=== PATIENT | male | born 1940 | race Caucasian/White ===

== ENCOUNTER 2017-12-01 22:40 | Emergency (ER) | payer MEDICARE, OTHER ==
[~2017-12-01] VITALS: Ht 182.9 cm; Wt 88.6 kg
[~2017-12-01 22:40] MED LIST: AMLO10TA PO; ASPI-1264 PO; ATOR20TA PO; BENA40TA2 PO; FLO0.4C PO; HYDR12.5 PO; MULT-1085 PO; OMEP-50 PO
[2017-12-01 22:56] VITALS: BP 111/81
[2017-12-01] MEDS ORDERED: Cipro HC otic suspension 10ML bottle RIGHT EAR STA (23:13)
[2017-12-01] MEDS ORDERED: ciprofloxacin 250mg tablet PO ONE (23:15)
[2017-12-01] MEDS ORDERED: CIPR10DR RIGHT EAR (23:17)
[2017-12-01] MEDS ORDERED: CIPR-259 PO (23:17)
== END 2017-12-01 23:33 | disposition home or self-care (01) ==
LOC: ER 22:40
DX: H66.91 Otitis media, unspecified, right ear (principal); Z88.0 Allergy status to penicillin; Z79.82 Long term (current) use of aspirin; Z79.899 Other long term (current) drug therapy
CPT/HCPCS: 99283

== ENCOUNTER 2019-09-09 17:28 | Emergency (ER) | payer MEDICARE ==
[~2019-09-09] VITALS: Ht 182.9 cm; Wt 90.0 kg
[~2019-09-09 17:28] MED LIST changes: -BENA40TA2 PO; +BENA40TA73 PO
[2019-09-09] MEDS ORDERED: normal saline 1000ML IV soln IV ONE (17:45)
[2019-09-09] MEDS ORDERED: acetaminophen 325mg tablet PO STA (17:59)
[2019-09-09 18:22] LABS: BASOPHILS % (AUTO) 0.4 % (0-1); EOSINOPHILS # (AUTO) 0.1 X10'3 (0-0.9); EOSINOPHILS % (AUTO) 1.3 % (0-6); HEMATOCRIT 38.1 % (42.0-52.0); LYMPHOCYTES # (AUTO) 1.3 X10'3 (1.1-4.8); LYMPHOCYTES % (AUTO) 20.5 % (21-51); MEAN CORPUSCULAR HEMOGLOBIN 30.8 PG (27.0-31.0); MEAN CORPUSCULAR HGB CONC 34.1 g/dL (33.0-36.5); MEAN CORPUSCULAR VOLUME 90.4 FL (78-98); NEUTROPHILS % (AUTO) 62.8 % (42-75); PLATELET COUNT 232 X10'3 (140-440); RED BLOOD COUNT 4.22 X10'6 (4.70-6.10); RED CELL DISTRIBUTION WIDTH 14.9 % (11.5-14.5); WHITE BLOOD COUNT 6.4 X10'3 (4.5-11.0)
[2019-09-09] MEDS ORDERED: FAMO20TA10 PO (18:25)
[2019-09-09 18:26] LABS: ABG BASE EXCESS -0.7 mmol/L (-2.0-3.0); ABG HCO3 21.3 mmol/L (22.0-26.0); ABG OXYGEN SATURATION 96.8 % (95-98); ABG PCO2 (T) 30.7 mmHg (35.0-45.0); ABG PH (T) 7.467 (7.350-7.450); ABG PO2 (T) 95.4 mmHg (83-108); ALLEN'S TEST POSITIVE; FCOHb 0.7 % (0.5-1.5); FMetHb 0.1 % (0.3-1.12); TOTAL HEMOGLOBIN 13.3 G/dl (14.0-17.9)
[2019-09-09 18:32] LABS: COLOR,URINE YELLOW (Yellow); GLUCOSE, URINE NEGATIVE (Neg); KETONES,URINE TRACE mg/dl (Neg); LEUKOCYTE ESTERASE ,URINE NEGATIVE (Neg); NITRITES, URINE NEGATIVE (Neg); OCCULT BLOOD,URINE LARGE (Neg); PROTEIN,URINE NEGATIVE (Neg)
[2019-09-09 18:33] LABS: UA COLLECTION TYPE VOIDED
[2019-09-09 18:34] LABS: CLARITY,URINE Slightly Cloudy (Clear)
[2019-09-09 18:40] LABS: BACTERIA,URINE NONE SEEN /HPF (Neg); MUCUS STRANDS MODERATE /LPF (Neg); RBC,URINE 50-100 /HPF (0-2); SQUAMOUS EPITHELIAL CELL,UR FEW /LPF (FEW); WBC,URINE 0-4 /HPF (0-4)
[2019-09-09 18:41] LABS: HYALINE CASTS 0-3 /LPF (NEGATIVE)
[2019-09-09 18:46] LABS: ALANINE AMINOTRANSFERASE 25 U/L (12-78); ALBUMIN 3.4 G/DL (3.4-5.0); ALKALINE PHOSPHATASE 84 IU/L (46-116); ANION GAP 7 (8-16); ASPARTATE AMINO TRANSFERASE 23 U/L (10-37); BILIRUBIN,TOTAL 0.6 MG/DL (0.1-1.0); BLOOD UREA NITROGEN 17 MG/DL (7-18); BUN/CREATININE RATIO 14.3 (5.4-32.0); CALCIUM 8.3 MG/DL (8.5-10.1); CHLORIDE 106 MMOL/L (99-107); CREATININE 1.19 MG/DL (0.60-1.10); GLUCOSE 96 MG/DL (70-104); POTASSIUM 3.7 MMOL/L (3.5-5.1); SODIUM 139 MMOL/L (135-145); TOTAL CARBON DIOXIDE 26.4 MMOL/L (24-32); TOTAL PROTEIN 6.9 G/DL (6.4-8.2); eGFR 59 ML/MIN
--- NOTE | 2019-09-09 18:49 | NUR ---
relieving RN for break, pt is resting quietly on bed, resp even and unlabored, "I am doing fine",
--- NOTE | 2019-09-09 18:50 | NUR ---
pt was on droplet precautions, and hepa filter on in room prior to my caring for pt
[2019-09-09 18:53] LABS: C-REACTIVE PROTEIN 4.26 MG/DL (0.0-0.5); LACTATE DEHYDROGENASE 200 U/L (85-227)
[2019-09-09 18:59] LABS: FERRITIN 69 NG/ML (26-388)
[2019-09-09] MEDS ORDERED: ketorolac tromethamine 15mg/ml inj. IV ONE (19:40)
[2019-09-09] MEDS ORDERED: AZIT250T2 PO (20:03)
[2019-09-09 20:11] LABS: PLATELET ESTIMATE NORMAL; TOTAL CELLS COUNTED 100
[2019-09-09 20:16] VITALS: BP 142/82
== END 2019-09-09 20:18 | disposition home or self-care (01) ==
LOC: ER 17:29
DX: J40 Bronchitis, not specified as acute or chronic (principal); Z20.828 Contact with and (suspected) exposure to other viral communicable diseases; Z88.0 Allergy status to penicillin; Z79.82 Long term (current) use of aspirin; Z79.899 Other long term (current) drug therapy
CPT/HCPCS: 36415; 36600; 71045; 80053; 81001; 82728; 82803; 83605; 83615; 84145; 85018; 85025; 85384; 85610; 86140; 87040; 87635; 93005; 96374; 99285; J1885; J7030

== ENCOUNTER 2021-04-09 17:05 | Emergency (ER) | payer MEDICARE ==
[~2021-04-09] VITALS: Ht 182.9 cm; Wt 88.6 kg
[~2021-04-09 17:05] MED LIST changes: -AMLO10TA PO; +FAMO20TA10 PO; -HYDR12.5 PO; -OMEP-50 PO
[2021-04-09] MEDS ORDERED: azithromycin 250mg tablet PO ONE (18:00)
[2021-04-09] MEDS ORDERED: CefTRIAXone 1000mg IM Kit (w/lidocaine diluent) IM SCH (18:00)
--- NOTE | 2021-04-09 18:41 | NUR ---
PATIENT TOLERATED INJECTION WELL, NO SIDE EFFECTS NOTED.
[2021-04-09 18:42] VITALS: BP 175/90
== END 2021-04-09 18:43 | disposition home or self-care (01) ==
LOC: ER 17:06
DX: Z11.3 Encounter for screening for infections with a predominantly sexual mode of transmission (principal); R21 Rash and other nonspecific skin eruption; Z88.0 Allergy status to penicillin; Z79.82 Long term (current) use of aspirin; Z79.899 Other long term (current) drug therapy
CPT/HCPCS: 36415; 86592; 87491; 87591; 96372; 99283; J0696

== ENCOUNTER 2021-09-28 09:04 | Outpatient (CLI) | payer MEDICARE ==
[~2021-09-28 09:04] MED LIST changes: -ASPI-1264 PO; -ATOR20TA PO; +ATOR20TA66 PO; -BENA40TA73 PO; -FAMO20TA10 PO; +FURO20TA4 PO; +HYDR28CR14 TOP; -MULT-1085 PO; +OMEP20CA16 PO; +SERT-433 PO
[2021-09-28 09:47] LABS: BASOPHILS % (AUTO) 0.7 % (0-1); EOSINOPHILS # (AUTO) 0.2 X10'3 (0-0.9); EOSINOPHILS % (AUTO) 3.2 % (0-6); HEMATOCRIT 37.6 % (42.0-52.0); HEMOGLOBIN 12.4 g/dl (14.0-17.9); LYMPHOCYTES # (AUTO) 1.2 X10'3 (1.1-4.8); LYMPHOCYTES % (AUTO) 23.3 % (21-51); MEAN CORPUSCULAR HEMOGLOBIN 29.1 PG (27.0-31.0); MEAN CORPUSCULAR HGB CONC 33.1 g/dL (33.0-36.5); MEAN PLATELET VOLUME 7.9 FL (7.4-10.4); MONOCYTES # (AUTO) 0.6 X10'3 (0-0.9); MONOCYTES % (AUTO) 11.4 % (2-12); NEUTROPHILS # (AUTO) 3.1 X10'3 (1.8-7.7); NEUTROPHILS % (AUTO) 61.4 % (42-75); PLATELET COUNT 292 X10'3 (140-440); RED BLOOD COUNT 4.27 X10'6 (4.70-6.10); RED CELL DISTRIBUTION WIDTH 16.7 % (11.5-14.5); WHITE BLOOD COUNT 5.1 X10'3 (4.5-11.0)
[2021-09-28 10:00] LABS: APTT 26 SECONDS (22-32)
[2021-09-28 10:01] LABS: ALANINE AMINOTRANSFERASE 25 U/L (12-78); ALBUMIN 3.7 G/DL (3.4-5.0); ALBUMIN/GLOBULIN RATIO 1.1 (1.1-1.5); ALKALINE PHOSPHATASE 77 IU/L (46-116); ANION GAP 8 (8-16); ASPARTATE AMINO TRANSFERASE 26 U/L (10-37); BILIRUBIN,TOTAL 0.6 MG/DL (0.1-1.0); BLOOD UREA NITROGEN 13 MG/DL (7-18); BUN/CREATININE RATIO 12.5 (5.4-32.0); CALCIUM 8.5 MG/DL (8.5-10.1); CHLORIDE 108 MMOL/L (99-107); CREATININE 1.04 MG/DL (0.60-1.10); GLUCOSE 97 MG/DL (70-104); POTASSIUM 3.8 MMOL/L (3.5-5.1); SODIUM 144 MMOL/L (135-145); TOTAL CARBON DIOXIDE 27.9 MMOL/L (24-32); TOTAL PROTEIN 7.1 G/DL (6.4-8.2); eGFR 68 ML/MIN
[2021-09-28] MEDS ORDERED: iohexol 350MG/ML 100ml bottle IV ONE (12:00)
[2021-09-28] MEDS ORDERED: IODIXANOL 320 MG/ML INFUS..BTL 100ML IV ONE (12:00)
== END 2021-09-28 23:59 | disposition home or self-care (01) ==
LOC: VAS 09:04
PROVIDERS: ATTEND Internal Medicine Cardiovascular Disease
DX: I70.0 Atherosclerosis of aorta (principal); I51.7 Cardiomegaly; N40.0 Benign prostatic hyperplasia without lower urinary tract symptoms; M43.8X4 Other specified deforming dorsopathies, thoracic region; Q25.46 Tortuous aortic arch; M47.814 Spondylosis without myelopathy or radiculopathy, thoracic region; M19.011 Primary osteoarthritis, right shoulder; M19.012 Primary osteoarthritis, left shoulder; I35.0 Nonrheumatic aortic (valve) stenosis; I65.29 Occlusion and stenosis of unspecified carotid artery; Z20.822 Contact with and (suspected) exposure to COVID-19; Z96.642 Presence of left artificial hip joint
CPT/HCPCS: 36415; 71046; 71275; 74174; 80053; 85025; 85610; 85730; 87635; 94010; 94727; 94729; C9803; Q9967

== ENCOUNTER 2022-03-13 12:25 | Emergency (ER) | payer MEDICARE ==
[~2022-03-13] VITALS: Ht 182.9 cm; Wt 69.8 kg
[~2022-03-13 12:25] MED LIST changes: +ASPI-1071 PO; +BENA40TA46 PO; +CINN500C15 PO; -HYDR28CR14 TOP; +MULT-1085 PO; -SERT-433 PO
[2022-03-13 13:50] LABS: BASOPHILS % (AUTO) 0.6 % (0-1); EOSINOPHILS # (AUTO) 0.3 X10'3 (0-0.9); EOSINOPHILS % (AUTO) 4.8 % (0-6); HEMATOCRIT 39.2 % (42.0-52.0); HEMOGLOBIN 13.1 g/dl (14.0-17.9); LYMPHOCYTES # (AUTO) 1.3 X10'3 (1.1-4.8); LYMPHOCYTES % (AUTO) 23.2 % (21-51); MEAN CORPUSCULAR HGB CONC 33.5 g/dL (33.0-36.5); MEAN CORPUSCULAR VOLUME 86.5 FL (78-98); MEAN PLATELET VOLUME 8.2 FL (7.4-10.4); MONOCYTES # (AUTO) 0.7 X10'3 (0-0.9); MONOCYTES % (AUTO) 11.7 % (2-12); NEUTROPHILS # (AUTO) 3.4 X10'3 (1.8-7.7); NEUTROPHILS % (AUTO) 59.7 % (42-75); PLATELET COUNT 218 X10'3 (140-440); RED BLOOD COUNT 4.53 X10'6 (4.70-6.10); RED CELL DISTRIBUTION WIDTH 16.8 % (11.5-14.5); WHITE BLOOD COUNT 5.8 X10'3 (4.5-11.0)
[2022-03-13 13:57] LABS: ALANINE AMINOTRANSFERASE 29 U/L (12-78); ALBUMIN 3.9 G/DL (3.4-5.0); ALBUMIN/GLOBULIN RATIO 1.1 (1.1-1.5); ALKALINE PHOSPHATASE 95 IU/L (46-116); ANION GAP 6 (8-16); ASPARTATE AMINO TRANSFERASE 32 U/L (10-37); BILIRUBIN,TOTAL 0.4 MG/DL (0.1-1.0); BLOOD UREA NITROGEN 14 MG/DL (7-18); BUN/CREATININE RATIO 13.2 (5.4-32.0); CHLORIDE 106 MMOL/L (99-107); CREATININE 1.06 MG/DL (0.60-1.10); GLUCOSE 101 MG/DL (70-104); POTASSIUM 3.8 MMOL/L (3.5-5.1); SODIUM 142 MMOL/L (135-145); TOTAL CARBON DIOXIDE 29.6 MMOL/L (24-32); TOTAL PROTEIN 7.5 G/DL (6.4-8.2); eGFR 67 ML/MIN
[2022-03-13 17:51] VITALS: BP 170/90
== END 2022-03-13 17:53 | disposition home or self-care (01) ==
LOC: ER 12:25
DX: R42 Dizziness and giddiness (principal); R55 Syncope and collapse; R53.83 Other fatigue; Z88.0 Allergy status to penicillin; Z79.899 Other long term (current) drug therapy; Z79.82 Long term (current) use of aspirin
CPT/HCPCS: 36415; 71045; 80053; 83880; 84484; 85025; 93005; 99285; A4615

== ENCOUNTER 2024-03-15 12:04 | Emergency (ER) | payer MEDICARE, OTHER, MEDICAID ==
[~2024-03-15] VITALS: Ht 182.9 cm; Wt 86.4 kg
[~2024-03-15 12:04] MED LIST changes: +AMLO10TA13 PO; -BENA40TA46 PO; -FURO20TA4 PO; +LOSA100T58 PO; +OMEP40CA21 PO
[2024-03-15 12:30] VITALS: TEMP 97
[2024-03-15] MEDS ORDERED: tranexamic acid inj. 1,000 MG in normal saline 100ml IV soln 90 ML IV ONE (13:20)
[2024-03-15 13:23] LABS: BASOPHILS % (AUTO) 0.7 % (0-1); EOSINOPHILS # (AUTO) 0.2 X10'3 (0-0.9); HEMATOCRIT 41.5 % (42.0-52.0); HEMOGLOBIN 14.1 g/dl (14.0-17.9); LYMPHOCYTES # (AUTO) 1.4 X10'3 (1.1-4.8); LYMPHOCYTES % (AUTO) 28.3 % (21-51); MEAN CORPUSCULAR HEMOGLOBIN 32.7 PG (27.0-31.0); MEAN CORPUSCULAR VOLUME 96.2 FL (78-98); MEAN PLATELET VOLUME 8.6 FL (7.4-10.4); MONOCYTES # (AUTO) 0.7 X10'3 (0-0.9); MONOCYTES % (AUTO) 13.9 % (2-12); NEUTROPHILS # (AUTO) 2.6 X10'3 (1.8-7.7); NEUTROPHILS % (AUTO) 53.1 % (42-75); PLATELET COUNT 225 X10'3 (140-440); RED BLOOD COUNT 4.32 X10'6 (4.70-6.10); RED CELL DISTRIBUTION WIDTH 15.6 % (11.5-14.5)
[2024-03-15 13:45] LABS: ANION GAP 9 (8-16); BLOOD UREA NITROGEN 9 MG/DL (7-18); BUN/CREATININE RATIO 8.7 (10.0-20.0); CALCIUM 8.9 MG/DL (8.5-10.1); CHLORIDE 105 MMOL/L (99-107); CREATININE 1.04 MG/DL (0.60-1.10); GLUCOSE 100 MG/DL (70-104); PRO BRAIN NATRIURETIC PEPTIDE 153 PG/ML (0-450); SODIUM 139 MMOL/L (135-145); TOTAL CARBON DIOXIDE 25.4 MMOL/L (24-32); eCRCL 57 ML/MIN; eGFR 68 ML/MIN
[2024-03-15 13:46] LABS: POTASSIUM 4.2 MMOL/L (3.5-5.1)
[2024-03-15] MEDS: tranexamic acid 1gm/0.7% sal. 100 ML IV ONE (13:50)
[2024-03-15] MEDS: dexamethasone sod phosphate 10mg/ml inj IV STA (15:52)
[2024-03-15] MEDS ORDERED: PRED20TA PO (16:20)
[2024-03-15 17:15] VITALS: BP 151/88; PULSE 86; RESP 16; O2SAT 97
== END 2024-03-15 17:18 | disposition home or self-care (01) ==
LOC: ER 12:05
DX: T78.49XA Other allergy, initial encounter (principal); I10 Essential (primary) hypertension; Z88.0 Allergy status to penicillin; Z79.82 Long term (current) use of aspirin; Z79.52 Long term (current) use of systemic steroids; Z79.899 Other long term (current) drug therapy; X58.XXXA Exposure to other specified factors, initial encounter
CPT/HCPCS: 36415; 80048; 83880; 85025; 96365; 96375; 99284; J1100; J3490